=== PATIENT | female | born 1955 | race Caucasian/White ===

== ENCOUNTER 2016-06-06 13:43 | Emergency (ER) | payer MEDICARE, OTHER ==
--- NOTE | 2016-06-06 16:56 | ER Document Report ---
ED ENT - General Chief Complaint: Nose Bleed Stated Complaint: NOSE BLEED Time seen by provider: 17:03 Mode of Arrival: Ambulatory Information source: Patient Notes: 61-year-old female presents to ED for a nosebleed last night and today. The nose is not bleeding at this time. She states it was bleeding earlier this afternoon and she put some tissues in her nose to stop the bleeding and then did not remove the tissues. TRAVEL OUTSIDE OF THE [place] IN LAST 30 DAYS: No - HPI Patient complains to provider of: Nose problem Onset: Yesterday Onset/Duration: Intermittent Severity: None Pain Level: Denies Location of pain: Nose Associated symptoms: Other - Nosebleed Similar symptoms previously: Yes Recently seen / treated by doctor: No - Related Data Allergies/Adverse Reactions: amoxicillin trihydrate [From Augmentin] Allergy (Severe, Verified 06/06/16 14:15 ) severe N&V codeine [Codeine] Allergy (Severe, Verified 06/06/16 14:15) n and v iron [Iron] Allergy (Severe, Verified 06/06/16 14:15) n and v Potassium Clavulanate * [From Augmentin] Allergy (Severe, Verified 06/06/16 14: 15) severe N&V morphine [Morphine] Allergy (Intermediate, Verified 06/06/16 14:15) Hives ibuprofen [From Motrin] Adverse Reaction (Severe, Verified 06/06/16 14:15) exacerbation of MS symptoms environmental Allergy (Severe, Uncoded 06/06/16 14:15) sinus congestion photosensitive Allergy (Severe, Uncoded 06/06/16 14:15) rash/hives z-pack Allergy (Intermediate, Uncoded 06/06/16 14:15) rash and photosensitivity acrylics Adverse Reaction (Severe, Uncoded 06/06/16 14:15) LAU & syncope Past Medical History - General Information source: Patient - Social History Smoking Status: Former Smoker Chew tobacco use (# tins/day): No Frequency of alcohol use: None Drug Abuse: None Occupation: retired Lives with: Family Family History: COPD, DM, Hypertension, Malignancy Patient has suicidal ideation: No Patient has homicidal ideation: No - Past Medical History Cardiac Medical History: Reports: None Pulmonary Medical History: Reports: Hx COPD - per Dr Schmitz's clearance, "may have underlying COPD" EENT Medical History: Reports: None Neurological Medical History: Reports: None Endocrine Medical History: Reports: None Renal/ Medical History: Reports: Hx Ovarian Cysts 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 Prednisone PRN only Skin Medical History: Reports None Psychiatric Medical History: Reports: None Traumatic Medical History: Reports: Hx Fractures - long finger, ? hand, denies surgery Infectious Medical History: Reports: None Past Surgical History: Reports: Hx Appendectomy - Feb 2010, Hx Bowel Surgery - RT hemicolectomy Apr 2010, Hx Section - 1976 and 1978, Hx Cholecystectomy - , Hx Tonsillectomy - as child - Immunizations Hx Diphtheria, Pertussis, Tetanus Vaccination: No Review of Systems - Review of Systems Constitutional: No symptoms reported EENT: Other - Nosebleed from frequent sneezing Cardiovascular: No symptoms reported Respiratory: No symptoms reported Gastrointestinal: No symptoms reported Genitourinary: No symptoms reported Female Genitourinary: No symptoms reported Musculoskeletal: No symptoms reported Skin: No symptoms reported Hematologic/Lymphatic: No symptoms reported Neurological/Psychological: No symptoms reported -: Yes All other systems reviewed and negative Physical Exam - Vital signs Vitals: Temp Pulse Resp BP Pulse Ox 97.5 F 84 18 167/75 H 97 06/06/16 14:14 06/06/16 14:14 06/06/16 14:14 06/06/16 14:14 06/06/16 14:14 Interpretation: Normal - General General appearance: Appears well, Alert - HEENT Head: Normocephalic, Atraumatic Eyes: Normal Pupils: PERRL Ears: Normal External canal: Normal Tympanic membrane: Normal Sinus: Normal Nasal: Purulent discharge, Swelling - Erythema. No: Epistaxis - States she's had several nosebleeds, no bleeding at this time, no open areas noted at this time Mucous membranes: Normal Pharynx: Normal Neck: Normal - Respiratory Respiratory status: No respiratory distress Chest status: Nontender Breath sounds: Normal Chest palpation: Normal - Cardiovascular Rhythm: Regular Heart sounds: Normal auscultation Murmur: No - Abdominal Inspection: Normal Distension: No distension Bowel sounds: Normal Tenderness: Nontender Organomegaly: No organomegaly - Back Back: Normal, Nontender - Extremities General upper extremity: Normal inspection, Nontender, Normal color, Normal ROM , Normal temperature General lower extremity: Normal inspection, Nontender, Normal color, Normal ROM , Normal temperature, Normal weight bearing. No: Josh's sign - Neurological Neuro grossly intact: Yes Cognition: Normal Orientation: AAOx4 [place] Coma Scale Eye Opening: Spontaneous Sisi Coma Scale Verbal: Oriented Sisi Coma Scale Motor: Obeys Commands Sisi Coma Scale Total: 15 Speech: Normal Motor strength normal: LUE, RUE, LLE, RLE Sensory: Normal - Psychological Associated symptoms: Normal affect, Normal mood - Skin Skin Temperature: Warm Skin Moisture: Dry Skin Color: Normal Course - Re-evaluation Re-evalutation: 06/06/16 17:09 Tissues removed from nose no openings noted no bleeding noted no dry blood noted , symptoms consistent with upper respiratory infection no other symptoms noted. Patient given instructions on nosebleeds. Patient given instructions to follow-up with her primary doctor - Vital Signs Vital signs: Temp Pulse Resp BP Pulse Ox 97.9 F 75 16 162/73 H 97 06/06/16 16:55 06/06/16 16:58 06/06/16 16:58 06/06/16 16:58 06/06/16 16:58 Discharge - Discharge Clinical Impression: Nosebleed Condition: Stable Disposition: HOME, SELF-CARE Additional Instructions: Nosebleed Instructions There is a significant chance of re-bleeding following a nosebleed. Proper care makes this less likely. Do not touch the nose for 24 hours. Do not blow the nose forcefully for one week. After 24 hours, gently apply Vaseline ointment to both nostrils with the tip of a finger, three times a day, for one week. It's normal to have a bloody mucous discharge for a few days. If active bleeding recurs, blow all the blood from the nose, then sit quietly and pinch the nose as firmly as possible for 10 minutes. If this does not stop the bleeding, return for further care. If packing was left in the nose and it starts to come out of the nostril, either tuck it back in or cut it off. Don't pull it out. Return for recheck and removal of the packing when instructed. Persons with frequent nosebleeds should avoid aspirin (unless prescribed for another reason). Humidity in the bedroom, and petroleum jelly applied to the nostrils at night may help. Please use saline nasal gel on q tip and gently apply to nasal area. Ayre FOLLOW-UP CARE: If you have been referred to a physician for follow-up care, call the physician s office for an appointment as you were instructed or within the next two days. If you experience worsening or a significant change in your symptoms, notify the physician immediately or return to the Emergency Department at any time for re-evaluation. Forms: Elevated Blood Pressure Referrals: [facility] MD [Primary Care Provider] - Follow up in 3-5 days
[2016-06-06 17:03] VITALS: BP 162/73
== END 2016-06-06 16:55 | disposition home or self-care (01) ==
LOC: ER 13:43
DX: R04.0 Epistaxis (principal); Z87.891 Personal history of nicotine dependence
CPT/HCPCS: 99283

== ENCOUNTER → 2016-06-21 | Outpatient (CLI) | payer MEDICARE, OTHER | LOC: RAD 13:31 | PROVIDERS: ATTEND Surgery | DX: K43.2 Incisional hernia without obstruction or gangrene (principal) | CPT/HCPCS: 74177; 82565 ==

== ENCOUNTER 2016-07-05 06:49 | Day surgery (SDC) | payer MEDICARE, OTHER ==
[~2016-07-05 06:49] MED LIST: NA PHOS,M-B/NA PHOS,DI-BA (ADULT) 133 ML ENEMA PR ONE
[2016-07-05 07:05] LABS: HEMATOCRIT 41.3 % (36.0-47.0); HEMOGLOBIN 14.1 g/dL (12.0-15.5); MEAN CORPUSCULAR HEMOGLOBIN 31.6 pg (27.0-33.4); MEAN CORPUSCULAR HGB CONC 34.2 g/dL (32.0-36.0); MEAN CORPUSCULAR VOLUME 93 fl (80-97); RED BLOOD COUNT 4.47 10^6/uL (3.72-5.28); RED CELL DISTRIBUTION WIDTH 13.9 % (11.5-14.0); WHITE BLOOD COUNT 5.7 10^3/uL (4.0-10.5)
[2016-07-05 07:21] LABS: ANION GAP 13 (5-19); BLOOD UREA NITROGEN 12 mg/dL (7-20); CALCIUM 9.7 mg/dL (8.4-10.2); CARBON DIOXIDE 22 mmol/L (22-30); CHLORIDE 110 mmol/L (98-107); CREATININE RESULT 0.55 mg/dL (0.52-1.25); GLUCOSE 116 mg/dL (75-110); POTASSIUM 3.6 mmol/L (3.6-5.0); SODIUM 145.1 mmol/L (137-145)
[2016-07-05] MEDS ORDERED: NALOXONE HCL INJ/PF 0.4 MG/1 ML SDV ONE (07:26)
[2016-07-05] MEDS ORDERED: ONDANSETRON HCL INJ/PF 4 MG/2 ML SDV ONE (07:26)
[2016-07-05] MEDS ORDERED: PROMETHAZINE HCL INJ 25 MG/1 ML VIAL ONE (07:26)
[2016-07-05] MEDS ORDERED: GLYCOPYRROLATE INJ 0.4 MG/2 ML VIAL ONE (07:26)
[2016-07-05] MEDS ORDERED: EPINEPHRINE INJ 1 MG/10 ML DISP.SYRIN ONE (07:27)
[2016-07-05] MEDS ORDERED: GLUCAGON,HUMAN RECOMB 1 MG INJ ONE (07:27)
[2016-07-05] MEDS ORDERED: FLUMAZENIL INJ 0.5 MG/5 ML VIAL IV ONE (07:27)
[2016-07-05] MEDS: MIDAZOLAM 2 MG/2 ML INJ ONE ×2 (08:21→08:24)
[2016-07-05] MEDS: FENTANYL CITRATE INJ/PF 100 MCG/2 ML AMPUL ONE ×2 (08:23→08:27)
--- NOTE | 2016-07-05 09:17 | Operative Report ---
Operative Report DATE OF SURGERY: 07/05/16 PREOPERATIVE DIAGNOSIS: Blood per rectum. POSTOPERATIVE DIAGNOSIS: Diverticulosis of the colon. Chronic posterior anal fissure. 3 column internal hemorrhoids. OPERATION: Colonoscopy, anoscopy with hemorrhoidal banding 2. SURGEON: OMAR BRUNO ANESTHESIA: Moderate Sedation TISSUE REMOVED OR ALTERED: None COMPLICATIONS: None ESTIMATED BLOOD LOSS: None INTRAOPERATIVE FINDINGS: Multiple large sigmoid diverticuli. Prominent 3 column internal hemorrhoids. Posterior midline anal fissure. PROCEDURE: Informed consent was obtained. Patient was brought to the endoscopy suite. IV sedation with Versed and fentanyl was administered. Digital rectal exam revealed a subtle defect posteriorly. Anterior perianal skin tag was also noted. Endoscope was passed via the patient's anus it was fed past the splenic flexure to the ileocolic anastomosis. The bowel prep was good visualization was good. The anastomosis appeared well-healed. The transverse colon and descending colon appeared normal. The sigmoid colon had multiple large diverticuli. Rectum appeared normal. Anoscopy was performed. It demonstrated at the posterior midline a fissure. However patient did not have the increased anal sphincter tone and she did not have significant pain associated with this fissure. Patient did have a dominant 3 column internal hemorrhoids. The largest ones were right anterior and left lateral. These 2 hemorrhoidal complexes were banded in sequence using the suction banding device. I could not obtain adequate exposure for banding the right posterior internal hemorrhoidal complex. Great care was taken to place the bands above the level of the dentate line. Patient did not experience pain with the banding, only pressure. Patient tolerated procedure well with no apparent complications. Assessment: Well-healed the ileocolic anastomosis. No evidence of colon polyps or cancer. Patient with prominent the internal hemorrhoids status post the successful banding 2. If she continues to have bleeding issues will try to band the right posterior hemorrhoidal complex in a few weeks. Patient with evidence of a posterior anal fissure but I do not think she is symptomatic and therefore will not pursue treatment.
--- NOTE | 2016-07-05 09:24 | PDOC DISCHARGE SUMMARY ---
Discharge Summary (SDC) - Discharge Final Diagnosis: Diverticulosis of the sigmoid colon. Internal hemorrhoids. Posterior anal midline fissure. Date of Surgery: 07/05/16 Discharge Date: 07/05/16 Condition: Good Treatment or Instructions: Colonoscopy and anoscopy with hemorrhoidal banding 2. August discharge patient home when met discharge criteria. Follow-up with me in 2 weeks. Stay active at home but avoid strenuous activity. Prescriptions: Docusate Sodium [Colace 100 mg Capsule] 100 mg PO BID #60 capsule Oxycodone HCl/Acetaminophen [Percocet 5-325 mg Tablet] 1 tab PO ASDIR PRN #25 tablet PRN Reason: Discharge Activity: Activity As Tolerated Report the Following to Your Physician Immediately: Increase in Pain - Normal to have some discomfort but not severe pain, Fever over 101 Degrees, Unusual Bleeding - Small amounts of bleeding is normal after this procedure., Redness Other Items to Report to MD: inability to urinate
[2016-07-05 10:05] VITALS: BP 118/63
== END 2016-07-05 10:10 | disposition home or self-care (01) ==
LOC: END 06:49
PROVIDERS: ATTEND Surgery
PROC: 0DJD8ZZ Inspection of Lower Intestinal Tract, Via Natural or Artificial Opening Endoscopic (ICD-10-PCS; principal; 2016-07-05 08:00)
PROC: 06LY0CC Occlusion of Hemorrhoidal Plexus with Extraluminal Device, Open Approach (ICD-10-PCS; 2016-07-05 08:00)
DX: K60.1 Chronic anal fissure (principal); K57.30 Diverticulosis of large intestine without perforation or abscess without bleeding; K64.8 Other hemorrhoids; K62.5 Hemorrhage of anus and rectum; G35 Multiple sclerosis; I10 Essential (primary) hypertension; Z88.5 Allergy status to narcotic agent; Z88.1 Allergy status to other antibiotic agents; Z79.899 Other long term (current) drug therapy; Z79.1 Long term (current) use of non-steroidal anti-inflammatories (NSAID); Z79.82 Long term (current) use of aspirin; Z87.891 Personal history of nicotine dependence
CPT/HCPCS: 45378; 46221; 36415; 85027; 80048; J2250; J3010; A9270; J0171; J1610; J2310; J2405; J2550; J3490

== ENCOUNTER → 2016-11-30 | Outpatient (CLI) | payer MEDICARE, OTHER ==
--- NOTE | 2016-11-30 15:39 | RADIOLOGY REPORT (SQ) ---
EXAM DESCRIPTION: CT LUNG CANCER SCREENING COMPLETED DATE/TIME: 11/30/2016 1:08 pm REASON FOR STUDY: TOBACCO USE Z72.0 TOBACCO USE F17.200 NICOTINE DEPENDENCE, UNSPECIFIED, UNCOMPLI CATED Has the patient had a Chest CT scan within the past year? no Was the patient offered tobacco cessation counseling? yes Was the patient engaged in shared decision making for this test? yes Does the patient have signs or symptoms of Lung Cancer? no Is the patient a smoker? no How many packs per year? 450 How many years since quitting smoking? 5 years Patients age: 61 COMPARISON: None. TECHNIQUE: Low Dose CT scan performed of the chest without intravenous contrast for purposes of scre ening for lung cancer. Images reviewed with lung, soft tissue and bone windows. Reconstructed coron al and sagittal MPR images reviewed. All images stored on PACS. All CT scanners at this facility use dose modulation, iterative reconstruction, and/or weight based d osing when appropriate to reduce radiation dose to as low as reasonably achievable (ALARA). [facility]: Dose Right [facility]: CareDose [facility]: Dose Right [facility]: Teradose 4D [facility]: [employer] RADIATION DOSE: Up-to-date CT equipment and radiation dose reduction techniques were employed. CTDIv ol: 2.1 mGy. DLP: 79 mGy-cm. mGy. . LIMITATIONS: No technical limitations. FINDINGS: LUNG NODULES: 4 mm nodule subpleural posterior right upper lobe image 140. 4 mm nodule posterior right lower lobe subpleural location, image 266. REMAINING LUNGS AND PLEURA: No pleural effusions or calcifications. No pneumothorax. Minimal ba ndlike scarring or atelectasis in the medial right upper lobe, posterior right lower lobe, lingular a pex, and lateral left lung base. Moderate changes of obstructive lung disease in the upper lobes marquita aterally. HILAR AND MEDIASTINAL STRUCTURES: No identified masses. No abnormal nodes. HEART AND VASCULAR STRUCTURES: No aortic aneurysm. No pericardial effusion. No cardiac devices. CORONARY ARTERY CALCIFICATIONS: No significant calcifications. UPPER ABDOMEN, THYROID, BONES, OTHER SOFT TISSUES: Post cholecystectomy. IMPRESSION: BENIGN FINDINGS IN THE LUNGS. NO OTHER CLINICALLY SIGNIFICANT/POTENTIALLY CLINICALLY SIGNIFICANT FINDINGS LUNGRADS: LUNGRADS: 2 BENIGN APPEARANCE OR BEHAVIOR. NODULES WITH A VERY LOW LIKELIHOOD OF BECOMING A CLINICALLY ACTIVE CANCER DUE TO SIZE OR LACK OF GROWTH. MODIFIER: NONE. RECOMMENDATION: Continue annual screening with LDCT in 12 months. COMMENT: CRITERIA: Solid nodule(s): < 6 mm; new < 4 mm. Part solid nodule(s): < 6 mm total diameter on baseline screening. Non solid nodule(s) (GGN): < 20 mm OR ? 20 and unchanged or slowly growing. Category 3 or 4 modules unchanged for ? 3 months. TECHNICAL DOCUMENTATION: JOB ID: [id number] Quality ID # [id number]: Final reports with documentation of one or more dose reduction techniques (e.g., Au tomated exposure control, adjustment of the mA and/or kV according to patient size, use of iterative reconstruction technique) 2010 [employer] [facility]
== END ==
LOC: RAD 12:46
PROVIDERS: ATTEND Family Medicine
DX: F17.211 Nicotine dependence, cigarettes, in remission (principal)
CPT/HCPCS: G0297

== ENCOUNTER → 2017-12-05 | Outpatient (CLI) | payer MEDICARE, BC ==
--- NOTE | 2017-12-05 14:01 | RADIOLOGY REPORT (SQ) ---
EXAM DESCRIPTION: CT LUNG CANCER SCREENING COMPLETED DATE/TIME: 12/05/2017 1:10 pm REASON FOR STUDY: Z71.6 TOBACCO ABUSE COUNSELING F17.211 NICOTINE DEPENDENCE, CIGARETTES, IN F17.211 NICOTINE DEPENDENCE, CIGARETTES, IN REMISSION Z71.6 TOBACCO ABUSE COUNSELING Has the patient had a Chest CT scan within the past year? Was the patient offered tobacco cessation counseling? Was the patient engaged in shared decision making for this test? Does the patient have signs or symptoms of Lung Cancer? Is the patient a smoker? How many packs per year? How many years since quitting smoking? Patients age: COMPARISON: 11/30/2016 TECHNIQUE: Low Dose CT scan performed of the chest without intravenous contrast for purposes of scre ening for lung cancer. Images reviewed with lung, soft tissue and bone windows. Reconstructed coron al and sagittal MPR images reviewed. All images stored on PACS. All CT scanners at this facility use dose modulation, iterative reconstruction, and/or weight based d osing when appropriate to reduce radiation dose to as low as reasonably achievable (ALARA). [facility]: Dose Right [facility]: CareDose [facility]: Dose Right [facility]: Teradose 4D [facility]: [employer] RADIATION DOSE: CT Rad equipment meets quality standard of care and radiation dose reduction techniq ues were employed. CTDIvol: 2.1 mGy. DLP: 76 mGy-cm. mGy. . LIMITATIONS: No technical limitations. FINDINGS: LUNG NODULES: Image 134 posterior right upper lobe less than 4 mm, less conspicuous than on the prior. REMAINING LUNGS AND PLEURA: No pleural effusions or calcifications. No pneumothorax. Stable ban dlike scarring in the lingula, right upper lobe and both lower lobes. HILAR AND MEDIASTINAL STRUCTURES: Stable 1.5 x 2 cm prevascular node. HEART AND VASCULAR STRUCTURES: No aortic aneurysm. No pericardial effusion. No cardiac devices. CORONARY ARTERY CALCIFICATIONS: Mild calcifications. UPPER ABDOMEN: No significant findings. THYROID AND OTHER SOFT TISSUES: No masses. No adenopathy. BONES: No significant finding. OTHER: No other significant findings. IMPRESSION: BENIGN FINDINGS IN THE LUNGS. OTHER FINDINGS ABOVE. LUNGRADS: LUNGRADS: 2 BENIGN APPEARANCE OR BEHAVIOR. NODULES WITH A VERY LOW LIKELIHOOD OF BECOMIN G A CLINICALLY ACTIVE CANCER DUE TO SIZE OR LACK OF GROWTH. MODIFIER: NONE. RECOMMENDATION: Continue annual screening with LDCT in 12 months. COMMENT: CRITERIA: Solid nodule(s): < 6 mm; new < 4 mm. Part solid nodule(s): < 6 mm total diameter on baseline screening. Non solid nodule(s) (GGN): < 20 mm OR ? 20 and unchanged or slowly growing. Category 3 or 4 modules unchanged for ? 3 months. TECHNICAL DOCUMENTATION: JOB ID: [id number] Quality ID # 436: Final reports with documentation of one or more dose reduction techniques (e.g., Au tomated exposure control, adjustment of the mA and/or kV according to patient size, use of iterative reconstruction technique) 2010 [facility] Reading location - IP/workstation name: [email or web address]
== END ==
LOC: RAD 14:33
PROVIDERS: ATTEND Family Medicine
DX: Z12.2 Encounter for screening for malignant neoplasm of respiratory organs (principal); F17.211 Nicotine dependence, cigarettes, in remission; Z71.6 Tobacco abuse counseling; R91.1 Solitary pulmonary nodule
CPT/HCPCS: G0297

== ENCOUNTER → 2017-12-08 | Outpatient (CLI) | payer MEDICARE, BC ==
[~2017-12-08] MED LIST changes: +ALBUTEROL SULFATE 0.083% NEB 2.5 MG/3 ML AMPUL NEB ONE; -NA PHOS,M-B/NA PHOS,DI-BA (ADULT) 133 ML ENEMA PR ONE
== END ==
LOC: RT 13:21
PROVIDERS: ATTEND Family Medicine
DX: R06.02 Shortness of breath (principal)
CPT/HCPCS: 94060; A9270

== ENCOUNTER → 2017-12-14 | Outpatient (CLI) | payer MEDICARE, BC ==
--- NOTE | 2017-12-14 14:16 | RADIOLOGY REPORT (SQ) ---
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 Patient drank oral contrast. Images reviewed with lung, soft tissue , and bone windows. Reconstructed coronal and sagittal MPR images reviewed. Delayed images for evalua tion of the urinary system also acquired. All images stored on PACS. All CT scanners at this facility use dose modulation, iterative reconstruction, and/or weight based d osing when appropriate to reduce radiation dose to as low as reasonably achievable (ALARA). [facility]: Dose Right [facility]: CareDose [facility]: Dose Right [facility]: Teradose 4D [facility]: [employer] CONTRAST TYPE AND DOSE: 91 mL of IV Omnipaque 350- low osmolar. RENAL FUNCTION: Creatinine 0.7 RADIATION DOSE: 37 mGy. LIMITATIONS: None. FINDINGS: LOWER CHEST: Minimal left basilar atelectasis. Small hiatal hernia. LIVER: Normal size. No masses. No dilated ducts. Fatty infiltration of the liver SPLEEN: Normal size. No focal lesions. PANCREAS: No masses. No significant calcifications. No adjacent inflammation or peripancreatic fluid collections. Pancreatic duct not dilated. GALLBLADDER: Surgically absent. ADRENAL GLANDS: No significant masses or asymmetry. RIGHT KIDNEY AND URETER: No solid masses. No significant calcifications. No hydronephrosis or hyd roureter. LEFT KIDNEY AND URETER: No solid masses. 1.5 cm cyst left upper pole kidney. No significant calcifi cations. No hydronephrosis or hydroureter. AORTA AND VESSELS: No aneurysm. No dissection. Renal arteries, SMA, celiac without stenosis. RETROPERITONEUM: No retroperitoneal adenopathy, hemorrhage or masses. BOWEL AND PERITONEAL CAVITY: Patient drank oral contrast. No CT evidence of bowel obstruction. No f ree intraperitoneal air or fluid. Colonic diverticuli are present without CT signs of acute divertic ulitis. APPENDIX: Surgically absent. No soft tissue masses or adenopathy along the right colon mesentery. PELVIS: No mass. No free fluid. Normal bladder. Fibroid uterus. Normal size ovaries. ABDOMINAL WALL: 4 cm diameter defect in the anterior abdominal wall at the umbilicus, with herniation of nonobstructed small bowel and mesenteric fat. BONES: No significant or acute findings. OTHER: No other significant finding. IMPRESSION: No CT evidence of metastatic disease given history of malignant neoplasm of the appendix TECHNICAL DOCUMENTATION: JOB ID: [id number] Quality ID # 436: Final reports with documentation of one or more dose reduction techniques (e.g., Au tomated exposure control, adjustment of the mA and/or kV according to patient size, use of iterative reconstruction technique) 2010 [employer]- All Rights Reserved Reading location - IP/workstation name: [email or web address]
== END ==
LOC: RAD 07:29
PROVIDERS: ATTEND Surgery
DX: C18.1 Malignant neoplasm of appendix (principal); R10.31 Right lower quadrant pain
CPT/HCPCS: 74177; 82565

== ENCOUNTER → 2018-12-17 | Outpatient (CLI) | payer MEDICARE, BC ==
--- NOTE | 2018-12-17 16:12 | RADIOLOGY REPORT (SQ) ---
EXAM DESCRIPTION: CT LUNG CANCER SCREENING COMPLETED DATE/TIME: 12/17/2018 2:57 pm REASON FOR STUDY: Z87.891 PERSONAL HISTORY OF NICOTINE DEPENDENCE Z87.891 PERSONAL HISTORY OF NICOT INE DEPENDENCE Has the patient had a Chest CT scan within the past year? No Was the patient offered tobacco cessation counseling? No Was the patient engaged in shared decision making for this test? Yes Does the patient have signs or symptoms of Lung Cancer? No Is the patient a smoker? No How many pack years? 80 How many years since quitting smoking? 5 years Patients age: 63 COMPARISON: CT chest 06/08/2010, 11/30/2016, 12/05/2017 TECHNIQUE: Low Dose CT scan performed of the chest without intravenous contrast for purposes of scre ening for lung cancer. Images reviewed with lung, soft tissue and bone windows. Reconstructed coron al and sagittal MPR images reviewed. All images stored on PACS. All CT scanners at this facility use dose modulation, iterative reconstruction, and/or weight based d osing when appropriate to reduce radiation dose to as low as reasonably achievable (ALARA). [facility]: Dose Right [facility]: CareDose [facility]: Dose Right [facility]: Teradose 4D [facility]: [employer] RADIATION DOSE: CT Rad equipment meets quality standard of care and radiation dose reduction techniq ues were employed. CTDIvol: 2.1 mGy. DLP: 86 mGy-cm. mGy. . LIMITATIONS: No technical limitations. FINDINGS: LUNG NODULES: 7 mm ill-defined solid nodule posterior aspect right upper lobe axial image 144/557. 8 mm sub solid nodule posterior right lower lobe, posterior basal segment, best shown on axial image 255/557 REMAINING LUNGS AND PLEURA: No pleural effusions or calcifications. No pneumothorax. There is b andlike scarring along the left major fissure and along both posterior costophrenic sulci. Moderate changes of obstructive lung disease are present with enlarged airspaces. 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 No abnormal nodes. HEART AND VASCULAR STRUCTURES: No aortic aneurysm. No pericardial effusion. No cardiac devices. CORONARY ARTERY CALCIFICATIONS: No significant calcifications. UPPER ABDOMEN, THYROID, BONES, OTHER SOFT TISSUES: No significant findings. IMPRESSION: PROBABLY BENIGN FINDINGS IN THE LUNGS. OTHER FINDINGS ABOVE. LUNGRADS: LUNGRADS: 3, PROBABLY BENIGN. PROBABLY BENIGN FINDING(S)- SHORT TERM FOLLOW UP SUGGESTED; INCLUDES NODULES WITH A LOW LIKELIHOOD OF BECOMING A CLINICALLY ACTIVE CANCER. MODIFIER: NONE. RECOMMENDATION: Followup LDCT in 6 months. COMMENT: CRITERIA: Solid nodule(s): ? 6 mm to < 8 mm at baseline OR new 4 mm to < 6 mm. Part solid nodule(s): ? 6 mm total diameter with solid component < 6 mm OR new < 6 mm total diameter . Non solid nodule(s) (GGN): ? [address] or new. FLEISCHNER CRITERIA FOR FOLLOW-UP OF PULMONARY NODULES Incidentally detected new nodules in persons 35 or older. HIGH RISK: History of smoking or other known risk factors. TECHNICAL DOCUMENTATION: JOB ID: [id number] Quality ID # 436: Final reports with documentation of one or more dose reduction techniques (e.g., Au tomated exposure control, adjustment of the mA and/or kV according to patient size, use of iterative reconstruction technique) 2010 [facility] Reading location - IP/workstation name: [email or web address]
== END ==
LOC: RAD 13:00
PROVIDERS: ATTEND Internal Medicine Pulmonary Disease
DX: Z87.891 Personal history of nicotine dependence (principal)
CPT/HCPCS: G0297

== ENCOUNTER → 2019-05-07 | Outpatient (CLI) | payer MEDICARE, BC ==
--- NOTE | 2019-05-08 08:52 | RADIOLOGY REPORT (SQ) ---
EXAM DESCRIPTION: PET CT SKULL/THIGH COMPLETED DATE/TIME: 05/07/2019 8:06 pm REASON FOR STUDY: ABNORMAL CT (R91.8) R91.8 OTHER NONSPECIFIC ABNORMAL FINDING OF LUNG FIELD COMPARISON: 12/17/2018 RADIONUCLIDE AND DOSE: 11.66 mCi F18 FDG The route of agent administration: Intravenous FASTING BLOOD SUGAR: 131 mg/dl CONTRAST TYPE AND DOSE: No CT contrast given. TECHNIQUE: Blood glucose level was verified. Above dose of FDG was injected intravenously. 2-D seg mented attenuation correction images were obtained from the base of the skull to the midthighs. Nonc ontrast CT images were obtained for attenuation correction and fusion with emission images. CT image s were performed without oral or intravenous contrast and are not sensitive for parenchymal lesions. A series of overlapping emission PET images were obtained. Images reviewed and manipulated at [facility] work station by the radiologist. Images stored on PACS. LIMITATIONS: None. FINDINGS: HEAD AND NECK: No areas of abnormal metabolic activity in the soft tissues of the head and neck. CHEST: Stable appearance of the right upper lobe ill-defined solid 7 mm nodule (series 3, image 74) w ithout significant increased FDG uptake (max SUV 0.8). Previously described right lower lobe medial sub solid nodule demonstrates mild uptake (max SUV 1.4). No other areas of abnormal metabolic activi ty in the chest. ABDOMEN AND PELVIS: Background hepatic activity max SUV 2.8. No areas of abnormal metabolic activit y in the abdomen or pelvis. Expected physiologic activity is present in the genitourinary system and bowel. PROXIMAL EXTREMITIES: Mild ill-defined activity within the right posterior shoulder without CT correl ate (max SUV 3.7), likely degenerative or related to injury. No other areas of abnormal metabolic ac tivity in the soft tissues of the lower extremities. BONES: No abnormal metabolic activity in the visualized skeleton. ADDITIONAL CT FINDINGS: Stable appearance of the substernal soft tissue lesion, previously described a substernal goiter. Grossly stable appearance of the right upper and lower lobe ill-defined nodules . No acute intrathoracic process. Prior cholecystectomy. No evidence of acute intra-abdominal proc ess. Stable midline fat and small bowel containing hernia. Partially visualized right hip arthropla sty. IMPRESSION: 1. Previously described right upper lobe nodule without significant increased FDG uptak e (max SUV 0.8). Previously described right lower lobe nodule also without significant increased upt jose (max SUV 1.4) which favors more benign process. 2. Mild increased uptake at the right shoulder without CT correlate, likely degenerative or related through recent injury (max SUV 3.7). 3. No other areas of abnormal FDG uptake throughout the remainder of the exam. TECHNICAL DOCUMENTATION: JOB ID: [id number] [employer]- All Rights Reserved Reading location - IP/workstation name: [email or web address]
== END ==
LOC: RAD 07:29
PROVIDERS: ATTEND Internal Medicine Pulmonary Disease
DX: R91.8 Other nonspecific abnormal finding of lung field (principal)
CPT/HCPCS: 78815; A9552